=== PATIENT | female | born 1990 | race Caucasian/White ===

== ENCOUNTER 2016-06-07 16:25 | Emergency (ER) | payer OTHER ==
[2016-06-07 21:56] LABS: HEMOGLOBIN 14.2 gm/dl (12.3-15.3); RED BLOOD COUNT 4.74 M/UL (4.00-5.10); WHITE BLOOD COUNT 17.5 K/UL (4.5-11.0)
[2016-06-07 22:18] LABS: BUN/CREATININE RATIO 13 (0-10)
== END 2016-06-07 23:25 | disposition home or self-care (01) ==
LOC: ER1 16:25
PROVIDERS: Physician Assistant
DX: S09.90XA Unspecified injury of head, initial encounter (principal); S16.1XXA Strain of muscle, fascia and tendon at neck level, initial encounter; S46.912A Strain of unspecified muscle, fascia and tendon at shoulder and upper arm level, left arm, initial encounter; S70.01XA Contusion of right hip, initial encounter; S30.811A Abrasion of abdominal wall, initial encounter; N20.1 Calculus of ureter; F17.210 Nicotine dependence, cigarettes, uncomplicated; V43.62XA Car passenger injured in collision with other type car in traffic accident, initial encounter; Y92.410 Unspecified street and highway as the place of occurrence of the external cause
CPT/HCPCS: 36415; 70450; 72125; 73030; 73060; 73502; 80053; 81001; 83690; 84703; 85025; 99284

== ENCOUNTER 2020-06-25 04:37 | Emergency (ER) | payer OTHER ==
[~2020-06-25 04:37] MED LIST: PRENATAL VITAM1 EAC6 PO
[2020-06-25 05:20] LABS: HEMOGLOBIN 14.6 gm/dl (12.3-15.3); RED BLOOD COUNT 4.9 M/UL (4.00-5.10)
[2020-06-25 05:52] LABS: BUN/CREATININE RATIO 19 (0-10)
== END 2020-06-25 06:20 | disposition home or self-care (01) ==
LOC: ER1 04:37
PROVIDERS: Emergency Medicine
DX: R10.13 Epigastric pain (principal); F17.200 Nicotine dependence, unspecified, uncomplicated
CPT/HCPCS: 80053; 81001; 83690; 84703; 85025; 99284

== ENCOUNTER 2020-07-26 06:14 | Emergency (ER) | payer OTHER ==
[2020-07-26] MEDS ORDERED: BACTROBAN OINT22 GM EXT (07:42)
[2020-07-26] MEDS ORDERED: IBUPROFEN600 MG PO (07:42)
[2020-07-26] MEDS ORDERED: BACTRIM 400-801 EACH PO (07:42)
== END 2020-07-26 07:47 | disposition home or self-care (01) ==
LOC: ER1 06:14
DX: L02.31 Cutaneous abscess of buttock (principal); F17.210 Nicotine dependence, cigarettes, uncomplicated
CPT/HCPCS: 87070; 87077; 87186; 87205; 99283

== ENCOUNTER 2020-10-22 10:34 | Emergency (ER) | payer OTHER ==
[~2020-10-22 10:34] MED LIST changes: +BACTRIM 400-801 EACH PO; +BACTROBAN OINT22 GM EXT; +IBUPROFEN600 MG PO
[2020-10-22] MEDS ORDERED: ZOFRAN4 MG PO (12:31)
== END 2020-10-22 12:42 | disposition home or self-care (01) ==
LOC: ER1 10:34
DX: R11.0 Nausea (principal); F17.210 Nicotine dependence, cigarettes, uncomplicated
CPT/HCPCS: 81001; 84703; 99283

== ENCOUNTER 2021-03-17 12:17 | Emergency (ER) | payer OTHER ==
[~2021-03-17 12:17] MED LIST changes: +ZOFRAN4 MG PO
== END 2021-03-17 14:14 | disposition home or self-care (01) ==
LOC: ER1 12:17
DX: R05.9 Cough, unspecified (principal); Z20.822 Contact with and (suspected) exposure to COVID-19; F17.200 Nicotine dependence, unspecified, uncomplicated
CPT/HCPCS: 99283; U0002

== ENCOUNTER 2021-04-19 16:47 | Emergency (ER) | payer OTHER ==
[2021-04-19 19:40] LABS: HEMOGLOBIN 13.9 gm/dl (12.3-15.3); RED BLOOD COUNT 4.65 M/UL (4.00-5.10); WHITE BLOOD COUNT 10.7 K/UL (4.5-11.0)
[2021-04-19 19:49] LABS: BUN/CREATININE RATIO 17 (0-10)
[2021-04-19] MEDS ORDERED: ZOFRAN ODT 4 MG4 MG PO (20:37)
[2021-04-19] MEDS ORDERED: BENZONATATE100 MG PO (20:37)
[2021-04-19] MEDS ORDERED: PROVENTIL HFA6.7 GM INH (20:37)
[2021-04-19] MEDS ORDERED: IBUPROFEN600 MG PO (20:37)
== END 2021-04-19 21:10 | disposition home or self-care (01) ==
LOC: ER1 16:47
PROVIDERS: Physician Assistant
DX: J06.9 Acute upper respiratory infection, unspecified (principal); R51.9 Headache, unspecified; Z20.822 Contact with and (suspected) exposure to COVID-19; F17.210 Nicotine dependence, cigarettes, uncomplicated
CPT/HCPCS: 0240U; 71045; 80053; 81001; 84703; 85025; 85652; 86140; 87086; 99283